=== PATIENT | female | born 1980 | race Caucasian/White ===

== ENCOUNTER 2020-05-28 09:34 | Outpatient (REF) | payer OTHER, SELFPAY ==
--- NOTE | ~2020-05-28 | XR_ITS ---
EXAMINATION: XR CERVICAL SPINE CLINICAL INFORMATION: Neck pain. COMPARISON: No relevant prior imaging. TECHNIQUE: 3 views of the cervical spine were obtained. FINDINGS: Alignment is normal. Vertebral heights are preserved. There is no acute fracture. No abnormal prevertebral soft tissue swelling. There is loss of intervertebral disc height with associated disc osteophyte spurring at C4-C5 and C5-C6. The craniocervical junction is normal. Grossly no evidence of canal compromise. Visualized soft tissues of the neck are normal. Lung apices are clear. XR/XR cervical spine 3V IMPRESSION: Mild degenerative spondylosis at C4-C5 and C5-C6. Otherwise unremarkable examination.
--- NOTE | 2020-05-28 09:40 | EMG_ITS ---
Right median and ulnar motor and sensory studies were performed. Right radial sensory studies were performed. Paraspinal muscles were tested with a needle and also some limb muscles. IMPRESSION: 1. [id number] right median neuropathy across carpal tunnel. 2. Mild chronic right mid to lower cervical radiculopathy. MD TERRI Millan/LAWSON / [id number]
== END 2020-05-28 09:35 | disposition home or self-care (01) ==
LOC: HO.NEURO 09:34
PROVIDERS: PCP Internal Medicine; Visit Provider Internal Medicine
DX: R20.0 Anesthesia of skin (principal); M54.2 Cervicalgia
CPT/HCPCS: 72040; 95886; 95909

== ENCOUNTER 2020-08-21 14:00 | Outpatient (RCR) | payer OTHER, SELFPAY ==
--- NOTE | 2020-06-24 18:05 | MHC.PT.EP ---
[facility] [place] Office [place] Office [place] Office [address] Brittney Alberts [address] [phone] F: [phone] F: [phone] F: [phone] F: [phone] Physical Therapy Plan of Care Date of Evaluation: Date of Surgery: NA Diagnosis: Cervicalgia Assessment: 40 year old female referred to PT for cervicalagia . Pt reports of having h/o chronic neck pain which has gotten worse with time. On PT examination she presents with TTP over B UT, levator scap, R medial border of scapula, posterior shoulder joint line R side, decreased cervical gross ROM, decreased muscle strength, and altered posture. She would benefit from skilled PT to address the aforementioned impairments to increase tolerance to sitting, driving, ADLs like cleaning lifting and returning to PLOF. Pt recommended 2/week however she will be coming only 1/week due to family commitments. Frequency and Duration: The patient will be seen 2x week for 5 weeks Short Term Goals: 1. Patient will demonstrate 50% decrease in pain which will enable her to sleep through the night w/out any waking in 2 weeks 2. Patient will have gross cervical ROM WNL and pain free which will enable her to check blind spots while driving in 3 weeks Penitentiary Goals: 1. Pt will independently self assess and correct posture every 30 minutes in 4 weeks. 2. Patient will demonstrate an increase in muscle strength by 1 grade so as to be able to perform IADLS independently in 5 weeks. 3. Pt will be independent with all HEPs for symptom management and maintenance following d/c in 5 weeks. Treatment Plan: Modalities to reduce pain, spasms and effusion. Manual therapy to restore motion and function. Therapeutic exercise to improve strength and flexibility. Neuromuscular re-education for posture and balance. Therapeutic activities to return to functional activities of daily living. Electronically signed by: Jacklyn Balderas, PT, DPT Please sign and return to therapist. Thank you for your referral.
--- NOTE | 2020-08-28 14:30 | MHC.PT.DC ---
[facility] [place] Office [place] Office [place] Office [address] Brittney Alberts [address] [phone] F: [phone] F: [phone] F: [phone] F: [phone] Physical Therapy Discharge Report Diagnosis: Cervicalgia Date of Surgery: NA Date of Evaluation: 06/24/20 Date of Discharge: 08/28/20 Treatments to Date: 4 Cancellations to Date: 0 No Shows to Date: 0 Discharge Status: Achieved Goals Improved Function Independent with HEP Discharge Summary: Pt able to thea all exercises today with no increase in pain. D/C to I with HEP today. Pt to see for new script for back px. Electronically signed by: Jacklyn Balderas PT DPT Please sign and return to therapist. Thank you for your referral.
== END 2020-08-28 14:30 | disposition home or self-care (01) ==
LOC: HO.PT 14:00
PROVIDERS: PCP Internal Medicine; Visit Provider Internal Medicine
DX: M54.2 Cervicalgia (principal)
CPT/HCPCS: 97110; 97112; 97140; 97161

== ENCOUNTER 2020-08-21 15:06 | Outpatient (REF) | payer OTHER, SELFPAY ==
--- NOTE | ~2020-08-21 | XR_ITS ---
EXAMINATION: XR thoracic spine 2V, XR lumbar spine 2-3V CLINICAL INFORMATION: Pain in thoracic spine. Low back pain. COMPARISON: None. TECHNIQUE: AP and lateral views of the thoracic spine were obtained with a swimmer's view. AP and lateral views of the lumbosacral spine were obtained with a coned lateral view of the lumbosacral junction. FINDINGS: THORACIC SPINE: There is mild multilevel spondylosis in the lower thoracic spine with mild marginal osteophytosis. There is mild narrowing of a disc space in the mid thoracic spine. Disc spaces are otherwise well-maintained. Alignment is normal. The paravertebral soft tissues are normal. Moderate degenerative changes are evident in the cervical spine at the C4-5 and C5-6 levels with disc space narrowing and marginal osteophytosis. LUMBOSACRAL SPINE: Assessment on the lateral views is limited because of obliquity. There is normal anatomic alignment. Disc spaces appear well-maintained. Minimal osteophytosis is present at L2-3 and L3-4. The posterior elements appear intact. The paravertebral soft tissues are unremarkable. XR/XR thoracic spine 2V IMPRESSION: 1. Mild multilevel spondylosis in the thoracic and lumbosacral spine. No acute abnormalities. 2. Degenerative disc disease in the cervical spine.
--- NOTE | ~2020-08-21 | XR_ITS ---
EXAMINATION: XR thoracic spine 2V, XR lumbar spine 2-3V CLINICAL INFORMATION: Pain in thoracic spine. Low back pain. COMPARISON: None. TECHNIQUE: AP and lateral views of the thoracic spine were obtained with a swimmer's view. AP and lateral views of the lumbosacral spine were obtained with a coned lateral view of the lumbosacral junction. FINDINGS: THORACIC SPINE: There is mild multilevel spondylosis in the lower thoracic spine with mild marginal osteophytosis. There is mild narrowing of a disc space in the mid thoracic spine. Disc spaces are otherwise well-maintained. Alignment is normal. The paravertebral soft tissues are normal. Moderate degenerative changes are evident in the cervical spine at the C4-5 and C5-6 levels with disc space narrowing and marginal osteophytosis. LUMBOSACRAL SPINE: Assessment on the lateral views is limited because of obliquity. There is normal anatomic alignment. Disc spaces appear well-maintained. Minimal osteophytosis is present at L2-3 and L3-4. The posterior elements appear intact. The paravertebral soft tissues are unremarkable. XR/XR lumbar spine 2-3V IMPRESSION: 1. Mild multilevel spondylosis in the thoracic and lumbosacral spine. No acute abnormalities. 2. Degenerative disc disease in the cervical spine.
== END 2020-08-21 15:07 | disposition home or self-care (01) ==
LOC: HO.XRAY 15:06
PROVIDERS: PCP Internal Medicine; Visit Provider Internal Medicine
DX: M54.5 Low back pain (principal); M54.6 Pain in thoracic spine
CPT/HCPCS: 72070; 72100

== ENCOUNTER 2020-10-07 08:50 | Outpatient (REF) | payer OTHER, SELFPAY ==
[2020-10-07 09:38] LABS: MANUAL DIFF FLAG NO
[2020-10-07 10:01] LABS: Basophils Percent Auto 0.6 % (0-2); Eosinophils Absolute Auto 0.1 X10*3/uL (0.0-0.4); Eosinophils Percent Auto 1.4 % (0-4); Hemoglobin 13.3 g/dl (12.0-16.0); Imm Gran Abs Auto 0.02 X10*3/uL (0.00-0.03); Imm Gran Pct Auto 0.4 % (0.0-0.4); Lymphocytes Absolute Auto 1.5 X10*3/uL (1.2-4.9); Lymphocytes Percent Auto 31.1 % (20-40); Mean Corpuscular HGB Conc 33.3 g/dl (31.0-35.0); Mean Corpuscular Hemoglobin 29.4 pg (27.0-33.0); Mean Corpuscular Volume 88.3 fL (80-98); Mean Platelet Volume 10.4 fL (9.4-12.3); Monocytes Absolute Auto 0.4 X10*3/uL (0.1-1.2); Monocytes Percent Auto 7.5 % (2-11); Neutrophils Absolute Auto 2.9 X10*3/uL (2.0-8.3); Platelet Count 232 X10*3/uL (160-400); Red Blood Count 4.53 X10*6/uL (4.20-5.50); Red Cell Distribution Width 13.1 % (11.0-16.0)
[2020-10-07 10:02] LABS: Alanine Aminotransferase 15 U/L (0-31); Albumin Level 4.3 g/dL (3.5-5.0); Alkaline Phosphatase 62 U/L (39-117); Anion Gap 13 (12-20); Aspartate Amino Transferase 23 U/L (5-31); Bilirubin Total 0.7 mg/dL (0.0-1.0); Blood Urea Nitrogen 9 mg/dL (9-16); Calcium 9.3 mg/dL (8.4-10.2); Carbon Dioxide 29 mmol/L (22-29); Chloride 100 mmol/L (96-108); Cholesterol 140 mg/dL; Estimated Glomerular Filt Rate > 60; Glucose Fasting 91 mg/dL (60-99); HDL Cholesterol 48 mg/dL; LDL Cholesterol Calculated 83 mg/dl; Sodium 138 mmol/L (135-145); Total Protein 6.7 g/dL (6.5-8.0); Triglycerides 46 mg/dL
[2020-10-07 10:22] LABS: Thyroid Stimulating Hormone 1.39 uIU/mL (0.32-4.0)
[2020-10-15 14:07] LABS: Vitamin D 25-OH, D2 <4 ng/mL; Vitamin D 25-OH, D3 22 ng/mL; Vitamin D 25-OH, Total 22 ng/mL (30-100)
== END 2020-10-07 08:51 | disposition home or self-care (01) ==
LOC: HO.LAB 08:50
PROVIDERS: PCP Internal Medicine; Visit Provider Internal Medicine
DX: E66.9 Obesity, unspecified (principal); Z68.32 Body mass index [BMI] 32.0-32.9, adult; E55.9 Vitamin D deficiency, unspecified; Z91.018 Allergy to other foods
CPT/HCPCS: 36415; 80053; 80061; 82306; 84443; 85025; 86003

== ENCOUNTER 2020-11-20 09:56 | Emergency (ER) | payer OTHER, SELFPAY ==
[2020-11-20 10:56] VITALS: BP 130/87; PULSE 89; RESP 18; TEMP 36.5; O2SAT 100; BMI 30.1
[2020-11-20 12:26] LABS: MANUAL DIFF FLAG NO
--- NOTE | 2020-11-20 12:34 | ED_ITS ---
HPI - General Adult General Chief complaint: General Medical Stated complaint: back pain Time Seen by Provider: 11/20/20 12:33 History of Present Illness HPI narrative: Patient is a 40-year-old female presents today with having lower back pain. Patient complaining of pain to the bilateral flank area. Positive nausea. No vomiting. No pain on urination but did notice her urine to be c loudy. Patient's last menstrual period is approximately 3 weeks ago. Timing duration was normal. No abdominal pain. No leg pain. No chest pain. No shortness of breath no diaphoresis. Positive history of ADD, history of anxiety. History of back pain. Patient from home. No history kidney stone. No cough no congestion or upper respiratory symptoms. Patient did receive her coronavirus vaccine approximately 1 week ago. Related Data Home Medications Medication Instructions Recorded Confirmed loratadine-pseudoephedrine ER 10 1 tab PO DAILY PRN 11/20/20 11/20/20 mg-240 mg tablet,extended [id number] (Claritin-D 24 Hour) melatonin 5 mg tablet 5 mg PO BEDTIME PRN 11/20/20 11/20/20 Previous Rx's Medication Instructions Recorded gabapentin 100 mg capsule 100 mg PO BEDTIME 30 Days #30 cap 04/23/20 arm brace #1 ea 06/08/20 buspirone 7.5 mg tablet 7.5 mg PO BID 30 Days #60 tab 10/07/20 cholecalciferol (vitamin D3) 25 25 mcg PO DAILY 90 Days #90 cap 10/20/20 mcg (1,000 unit) capsule dextroamphetamine-amphetamine 30 30 mg PO BID 30 Days #60 tab 11/09/20 mg tablet (Adderall) ibuprofen 400 mg tablet 400 mg PO Q6H PRN #20 tab 11/20/20 Allergies Allergy/AdvReac Type Severity Reaction Status Date / Time No Known Allergies Allergy Verified 11/20/20 10:56 Review of Systems Review of Systems: No fever no chills no chest pain No diaphoresis Positive flank pain bilaterally Yes all other systems are reviewed and are negative PMFSH Past Medical History Attestation statement: The following information was validated with the patient. Medical History ADD (attention deficit disorder) Cervical radiculopathy Class 1 obesity with body mass index (BMI) of 32.0 to 32.9 in adult [place] (generalized anxiety disorder) Hand numbness Lumbar spine pain Mild recurrent major depression Multiple food allergies Neck pain Right carpal tunnel syndrome Thoracic spine pain Family History Family History Son Mental health disorder Father Mental health disorder Daughter Mental health disorder Brother Mental health disorder Social History Social History Housing: House Alcohol intake: never Patient Tobacco Use Status: Never used Tobacco e-Cigarette/Vaping Use: Never Used Second Hand Smoke Exposure: No Advance Directives: No Patient : No service: No Current occupational status: employed Physical Exam Vital Signs: Vital Signs: Last Vital Signs Temp 97.7 F 11/20/20 10:56 Pulse 89 11/20/20 10:56 Resp 18 11/20/20 10:56 BP 130/87 11/20/20 10:56 Pulse Ox 100 11/20/20 10:56 Body Mass Index 30.1 Appearance: Alert. Oriented X3. No acute distress. Eyes: Pupils equal, round and reactive to light. ENT: Pharynx normal. Neck: Normal inspection. Neck supple. No lymph nodes noted. No crepitus CVS: Normal heart rate and rhythm. Pulses normal. Normal S1 and S2 Respiratory: No respiratory distress. Breath sounds normal. No Wheezing. No rales Abdomen: Soft and nontender. No rigidity. No distention. good BS x4 Skin: Skin warm and dry. Normal skin color. Normal skin turgor. Extremities: No lower extremity edema. Neurovascular intact to all extremities. No Lacerations. No Rash Neuro: Oriented X 3. No motor deficit. No sensory deficit. Moving all extermities. No slurred speech Medical Decision Making MDM Narrative Medical decision making narrative: Patient's electrolytes unremarkable. Urine showed no signs of infection. No blood in in the urine to suggest kidney stones. The pain was bilateral making kidney stone unlikely. Given Toradol for pain. Symptoms improving. test was negative. No bowel urinary incontinence. No focal weakness no signs of cauda equina syndrome. Likely musculoskeletal back pain. Will discharge patient home. Lab Data Result diagrams: 11/20/20 12:18 11/20/20 12:24 Labs: Lab Results 11/20/20 11/20/20 11/20/20 Range/Units 12:18 12:24 12:43 WBC 6.2 (4.8-10.8) X10*3/uL RBC 4.59 (4.20-5.50) X10*6/uL Hgb 13.6 (12.0-16.0) g/dl Hct 40.6 (37-47) % MCV 88.5 (80-98) fL MCH 29.6 (27.0-33.0) pg MCHC 33.5 (31.0-35.0) g/dl RDW 12.6 (11.0-16.0) % Plt Count 244 (160-400) X10*3/uL MPV 10.1 (9.4-12.3) fL Immature Gran % (Auto) 0.2 (0.0-0.4) % Neut % (Auto) 61.6 (45-73) % Lymph % (Auto) 29.9 (20-40) % [place] % (Auto) 6.4 (2-11) % Eos % (Auto) 1.3 (0-4) % Baso % (Auto) 0.6 (0-2) % Lymph # (Auto) 1.9 (1.2-4.9) X10*3/uL [place] # (Auto) 0.4 (0.1-1.2) X10*3/uL Eos # (Auto) 0.1 (0.0-0.4) X10*3/uL Baso # (Auto) 0.0 (0.0-0.2) X10*3/uL Abs Immat Gran (auto) 0.01 (0.00-0.03) X10*3/uL Absolute Neuts (auto) 3.8 (2.0-8.3) X10*3/uL Absolute Nucleated RBC 0.000 (0.0-0.012) X10*3/uL Nucleated RBC % (auto) 0.0 (0.0-0.2) /100WBC Sodium 138 (135-145) mmol/L Potassium 4.5 (3.3-5.1) mmol/L Chloride 105 (96-108) mmol/L Carbon Dioxide 28 (22-29) mmol/L Anion Gap 10 L (12-20) BUN 10 (9-16) mg/dL Creatinine 0.67 (0.5-1.4) mg/dL Estim Creat Clear Calc 109.7 Estimated GFR > 60 Random Glucose 93 (60-115) mg/dL Calcium 9.2 (8.4-10.2) mg/dL Total Bilirubin 0.4 (0.0-1.0) mg/dL AST 18 (5-31) U/L ALT 11 (0-31) U/L Alkaline Phosphatase 64 (39-117) U/L Total Protein 7.0 (6.5-8.0) g/dL Albumin 4.4 (3.5-5.0) g/dL Urine Color YELLOW Urine Appearance HAZY Urine pH 7.0 (5.0-8.0) Ur Specific [place] 1.020 (1.005-1.025) Urine Protein NEG (NEG-TRACE) MG/DL Urine Glucose (UA) NEG (NEG) MG/DL Urine Ketones NEG (NEG) MG/DL Urine Blood NEG (NEG) Urine Nitrite NEG (NEG) Ur Leukocyte Esterase NEG (NEG) Urine Test (NEGATIVE) 11/20/20 Range/Units 12:43 WBC (4.8-10.8) X10*3/uL RBC (4.20-5.50) X10*6/uL Hgb (12.0-16.0) g/dl Hct (37-47) % MCV (80-98) fL MCH (27.0-33.0) pg MCHC (31.0-35.0) g/dl RDW (11.0-16.0) % Plt Count (160-400) X10*3/uL MPV (9.4-12.3) fL Immature Gran % (Auto) (0.0-0.4) % Neut % (Auto) (45-73) % Lymph % (Auto) (20-40) % [place] % (Auto) (2-11) % Eos % (Auto) (0-4) % Baso % (Auto) (0-2) % Lymph # (Auto) (1.2-4.9) X10*3/uL [place] # (Auto) (0.1-1.2) X10*3/uL Eos # (Auto) (0.0-0.4) X10*3/uL Baso # (Auto) (0.0-0.2) X10*3/uL Abs Immat Gran (auto) (0.00-0.03) X10*3/uL Absolute Neuts (auto) (2.0-8.3) X10*3/uL Absolute Nucleated RBC (0.0-0.012) X10*3/uL Nucleated RBC % (auto) (0.0-0.2) /100WBC Sodium (135-145) mmol/L Potassium (3.3-5.1) mmol/L Chloride (96-108) mmol/L Carbon Dioxide (22-29) mmol/L Anion Gap (12-20) BUN (9-16) mg/dL Creatinine (0.5-1.4) mg/dL Estim Creat Clear Calc Estimated GFR Random Glucose (60-115) mg/dL Calcium (8.4-10.2) mg/dL Total Bilirubin (0.0-1.0) mg/dL AST (5-31) U/L ALT (0-31) U/L Alkaline Phosphatase (39-117) U/L Total Protein (6.5-8.0) g/dL Albumin (3.5-5.0) g/dL Urine Color Urine Appearance Urine pH (5.0-8.0) Ur Specific [place] (1.005-1.025) Urine Protein (NEG-TRACE) MG/DL Urine Glucose (UA) (NEG) MG/DL Urine Ketones (NEG) MG/DL Urine Blood (NEG) Urine Nitrite (NEG) Ur Leukocyte Esterase (NEG) Urine Test NEGATIVE (NEGATIVE) Discharge Plan Discharge Clinical Impression: Back pain Patient Disposition: Home, Self-Care Instructions: Acute Low Back Pain (ED) Prescriptions: New ibuprofen 400 mg tablet 400 mg PO Q6H PRN (Reason: pain) Qty: 20 RF: 0 No Action cholecalciferol (vitamin D3) 25 mcg (1,000 unit) capsule 25 mcg PO DAILY 90 Days Qty: 90 RF: 3 dextroamphetamine-amphetamine [Adderall] 30 mg tablet 30 mg PO BID 30 Days Qty: 60 RF: 0 loratadine-pseudoephedrine [Claritin-D 24 Hour] 10-240 mg Tablet Extended Release 24 Hr 1 tab PO DAILY PRN (Reason: Allergy Symptoms) RF: 0 melatonin 5 mg Tablet 5 mg PO BEDTIME PRN (Reason: Insomnia) RF: 0 (DME) arm brace Misc See Rx Instructions .ROUTE .MEDSUPPLY Qty: 1 RF: 0 buspirone 7.5 mg tablet 7.5 mg PO BID 30 Days Qty: 60 RF: 0 gabapentin 100 mg capsule 100 mg PO BEDTIME 30 Days Qty: 30 RF: 0 Referrals: Suzi Cortez MD [Primary Care Provider] - 2 days
[2020-11-20 12:36] LABS: Basophils Percent Auto 0.6 % (0-2); Eosinophils Absolute Auto 0.1 X10*3/uL (0.0-0.4); Eosinophils Percent Auto 1.3 % (0-4); Hematocrit 40.6 % (37-47); Hemoglobin 13.6 g/dl (12.0-16.0); Imm Gran Abs Auto 0.01 X10*3/uL (0.00-0.03); Imm Gran Pct Auto 0.2 % (0.0-0.4); Lymphocytes Absolute Auto 1.9 X10*3/uL (1.2-4.9); Lymphocytes Percent Auto 29.9 % (20-40); Mean Corpuscular HGB Conc 33.5 g/dl (31.0-35.0); Mean Corpuscular Hemoglobin 29.6 pg (27.0-33.0); Mean Corpuscular Volume 88.5 fL (80-98); Mean Platelet Volume 10.1 fL (9.4-12.3); Monocytes Absolute Auto 0.4 X10*3/uL (0.1-1.2); Monocytes Percent Auto 6.4 % (2-11); Neutrophils Absolute Auto 3.8 X10*3/uL (2.0-8.3); Neutrophils Percent Auto 61.6 % (45-73); Platelet Count 244 X10*3/uL (160-400); Red Blood Count 4.59 X10*6/uL (4.20-5.50); Red Cell Distribution Width 12.6 % (11.0-16.0); White Blood Count 6.2 X10*3/uL (4.8-10.8)
[2020-11-20 12:45] LABS: Alanine Aminotransferase 11 U/L (0-31); Albumin Level 4.4 g/dL (3.5-5.0); Alkaline Phosphatase 64 U/L (39-117); Anion Gap 10 (12-20); Aspartate Amino Transferase 18 U/L (5-31); Bilirubin Total 0.4 mg/dL (0.0-1.0); Blood Urea Nitrogen 10 mg/dL (9-16); Calcium 9.2 mg/dL (8.4-10.2); Carbon Dioxide 28 mmol/L (22-29); Chloride 105 mmol/L (96-108); Creatinine Clr Calc Pharmacy 109.7; Estimated Glomerular Filt Rate > 60; Glucose Random 93 mg/dL (60-115); Potassium 4.5 mmol/L (3.3-5.1); Sodium 138 mmol/L (135-145)
[2020-11-20] MEDS: 0.9 % Sodium Chloride 1,000 ML 999 ML IV (12:46)
[2020-11-20] MEDS: Ketorolac Tromethamine 15 MG/ML VIAL 30 MG IVPUSH (12:47)
[2020-11-20 12:48] LABS: Appearance Urine HAZY; Color Urine YELLOW; Glucose Urine UA NEG (NEG); Leukocyte Esterase Urine NEG (NEG); Nitrite Urine NEG (NEG); Urine Blood NEG (NEG); Urine Ketones NEG (NEG); Urine Protein NEG (NEG-TRACE)
--- NOTE | 2020-11-20 13:24 | PHA.MEDREC ---
Pharmacy Consult ? Medication Reconciliation Pharmacy has completed the medication reconciliation. Patient reports that she is not adherent to her medications. Gabapentin was last filled in April 2020. Sun Pfeiffer, ButchD
[2020-11-20 13:34] LABS: UPreg QC Valid YES; Urine Pregnancy NEGATIVE (NEGATIVE)
[2020-11-20 13:56] VITALS: BP 109/56; PULSE 80; RESP 16; O2SAT 98
--- NOTE | 2020-11-20 13:56 | PC.NURSE ---
PT REPORTS THAT SHE FEELS MUCH BETTER AFTER IV FLUIDS AND MEDICATIONS. AGREEABLE TO DC PLAN. AWAKE, ALERT AND ORIENTED X 3. SKIN WARM AND DRY. RESP UNLABORED. DENIES N/V. STATES NO PAIN AT THIS TIME. NO ACUTE DISTRESS NOTED. IV REMOVED.
== END 2020-11-20 13:59 | disposition home or self-care (01) ==
PROVIDERS: Emergency Provider Emergency Medicine Emergency Medical Services; PCP Internal Medicine
DX: M54.50 Low back pain, unspecified (principal); I25.10 Atherosclerotic heart disease of native coronary artery without angina pectoris; Z79.899 Other long term (current) drug therapy
CPT/HCPCS: 36415; 80053; 81003; 81025; 85025; 96361; 96374; 99283; 99284; J1885

== ENCOUNTER → 2021-05-07 16:37 | Outpatient (BNVA) | payer OTHER, SELFPAY | PROVIDERS: PCP Internal Medicine; Visit Provider Nurse Practitioner | DX: K59.00 Constipation, unspecified (principal); R14.0 Abdominal distension (gaseous); Z98.84 Bariatric surgery status | CPT/HCPCS: 99202 ==